=== PATIENT | male | born 1990 | race Caucasian/White ===

== ENCOUNTER 2017-10-07 11:25 | Inpatient (IN) | payer BC ==
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
[2017-10-07 13:56] LABS: PLATELET COUNT 357 10^3/uL (150-400)
[2017-10-07] MEDS ORDERED: IOPAMIDOL (ISOVUE-300) 100 ML BTL ONE (14:19)
[2017-10-07] MEDS ORDERED: PROMETHAZINE HCL 25 MG/ML INJ IVP PRN (17:13)
[2017-10-07] MEDS ORDERED: LORazepam 2 MG/ML INJ IVP PRN (17:13)
[2017-10-07] MEDS ORDERED: ONDANSETRON DISINTEGRATING 4 MG TAB PO PRN (17:13)
[2017-10-07] MEDS ORDERED: ONDANSETRON 4 MG/2 ML VIAL IVP PRN (17:13)
[2017-10-07] MEDS ORDERED: ACETAMINOPHEN 325 MG TAB PO PRN (17:13)
[2017-10-07] MEDS ORDERED: HYDROmorphONE/DILAUDID 1 MG/ML INJ IVP PRN (17:13)
[2017-10-07] MEDS ORDERED: oxyCODONE IR 5 MG TAB PO PRN (17:13)
[2017-10-07] MEDS ORDERED: BISACODYL 10 MG SUPP PR PRN (17:15)
[2017-10-07] MEDS ORDERED: MIDODRINE HCL 5 MG TAB PO PRN (17:15)
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
[2017-10-07] MEDS ORDERED: VANCOMYCIN 1.25 GM in NS 250 ML IV ONE (18:30)
[2017-10-07] MEDS: NS 1,000 ML IV SCH ×2 (18:36→23:49)
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
--- NOTE | 2017-10-07 20:00 | GPN ---
[f rep st] PROCEDURE NOTE DATE OF PROCEDURE: 10/07/2017 SURGEON: Brisa Juan MD. ANESTHESIA: 5 cc of 1% lidocaine. PREOPERATIVE DIAGNOSIS: Right paraspinal muscle abscess. POSTOPERATIVE DIAGNOSIS: Right paraspinal muscle abscess. PROCEDURE PERFORMED: Incision and drainage deep to the paraspinous muscles. FINDINGS: Loculated abscess. SPECIMENS: Fluid for culture. ESTIMATED BLOOD LOSS: 10 cc. INDICATIONS: As above. DESCRIPTION OF PROCEDURE: The patient was verbally consented for the procedure. He was on his side. Betadine was used to prep the skin. I injected the area with 5 cc of 1% lidocaine. I performed an incision. I had to deepen it significantly. I broke up the loculations with my fingers. I irrigat ed it with 50 cc of saline. I obtained a sample prior to irrigation. Hemostasis of a skin bleeder o btained with 3-0 Vicryl. Otherwise, hemostasis achieved with direct pressure. The wound was packed, ABD and tape applied. He tolerated the procedure well. His vital signs were stable throughout the procedure. /[id number]/MODL
[2017-10-07] MEDS ORDERED: NS IV SCH ×2 (20:30→21:00)
[2017-10-07] MEDS ORDERED: DAPTOMYCIN IV SCH ×2 (20:30→21:00)
[2017-10-07] MEDS: BACLOFEN 10 MG TAB PO SCH (21:36)
[2017-10-07] MEDS: DAPTOmycin 500 MG in NS 100 ML IV SCH (21:36)
[2017-10-07] MEDS: FLUDROCORTISONE ACETATE 0.1 MG TAB PO SCH (21:37)
[2017-10-07] MEDS: FAMOTIDINE 20 MG TAB PO SCH (21:37)
[2017-10-07] MEDS: GABAPENTIN 300 MG CAP PO SCH (21:37)
[2017-10-07] MEDS: PSYLLIUM METAMUCIL 1 PKT PO SCH (21:38)
[2017-10-08 05:41] LABS: PLATELET COUNT 272 10^3/uL (150-400)
[2017-10-08] MEDS ORDERED: DAPTOmycin 500 MG in NS 100 ML IV SCH (09:00)
[2017-10-08] MEDS ORDERED: TOLTERODINE TARTRATE 4 MG PO SCH (09:00)
[2017-10-08] MEDS: GABAPENTIN 300 MG CAP PO SCH ×2 (09:03→21:16)
[2017-10-08] MEDS: DOCUSATE SODIUM 100 MG CAP PO SCH (09:03)
[2017-10-08] MEDS: MIDODRINE HCL 5 MG TAB PO SCH (09:03)
[2017-10-08] MEDS: PSYLLIUM METAMUCIL 1 PKT PO SCH ×3 (09:03→21:17)
[2017-10-08] MEDS: BACLOFEN 10 MG TAB PO SCH ×3 (09:04→21:16)
[2017-10-08] MEDS: FLUDROCORTISONE ACETATE 0.1 MG TAB PO SCH ×2 (09:04→21:16)
[2017-10-08] MEDS: SENNOSIDES 1 TAB PO SCH ×2 (09:04→09:05)
[2017-10-08] MEDS: FAMOTIDINE 20 MG TAB PO SCH ×2 (09:04→21:17)
--- NOTE | 2017-10-08 10:10 | SOAPPROG ---
[facility] Progress Note Assessment/Plan: Assessment: 27 y/o quadriplegic M s/p I&D paraspinal muscle abscess S: Feeling better. He is originally from [place] and was here for concert. Reports that he is supposed to have total joint replacement surgery in the coming weeks. O: Alert Afebrile RRR No increased WOB Back: dressing and packing were changed. Wound appears healthy with good granulation tissue. It does undermine inferiorly. There is still some surrounding erythema and induration, but improving. Plan: Can go from surgery standpoint when medically stable. Will need ongoing wound care when he gets back to [place]. 10/08/17 10:05 Objective: Vital Signs Temp Pulse Resp BP Pulse Ox 36.8 C 58 L 15 130/82 H 95 10/08/17 08:00 10/08/17 08:00 10/08/17 08:00 10/08/17 08:00 10/08/17 08:00 Microbiology 10/07/17 17:13 Gram Stain - Final Back - Aspirate Laboratory Results 10/08/17 04:59 10/08/17 04:59 10/07/17 10/08/17 10/09/17 05:59 05:59 05:59 Intake Total 1999 Output Total 1775 Balance 225 ICD10 Worksheet Patient Problems: Problems Problem Status Onset Paraspinal abscess Acute
--- NOTE | 2017-10-08 10:37 | PDMN ---
Medical Necessity Medical necessity: Pt meets inpt criteria per MD order and MCG M-160, Sepsis and other febrile illness, A-3 days, Pt admitted w/fever and malaise from large paraspinal muscle abcess which required I&D on 10/07/17 and IV ABX's. Pt is high risk b/c of hx of quadriplegia requiring inpt monitoring and treatment.
--- NOTE | 2017-10-08 13:13 | HOSPPROG ---
Hospitalist Progress Note Assessment/Plan: Assessment: 27-year-old male presents with paraspinal muscle abscess in the setting quadriplegia Plan: 1. Paraspinal muscle abscess. Acute, new problem this provider, further workup indicated. Postop day [address] incision and drainage [address] Dr[address] Brisa Juan, loculations manually disrupted in OR, affected area is approximately L2 to sacral area on abdominal CT (personally interpreted) -wound cultures sent, blood cultures sent, currently awaiting speciation and sensitivity in order to guide antibiotic treatment -discussed with Dr. Adithya Mosley, he has raise the possibility of discharge on oral antibiotics as interval treatment until the patient can re-establish back in [place] and resume IV antibiotics, but this is pending speciation and sensitivity of the surgically obtained cultures -continue IV daptomycin in the interval, experienced either allergic reaction or red man syndrome with vancomycin 2. Quadriplegia. Secondary to cervical spine injury, the patient has movement in his bilateral upper extremities without fine motor movement in his hands, he has no sensation distal to the nipple line and no pain in his surgical area -continue baclofen and gabapentin for muscular spasm -continue a straight catheterizations per home routine 3. Suspected asymptomatic bacteriuria. Prior to arrival, the patient had urinalysis and urine culture obtained by his primary care provider, Dr. Brambila, [facility] in [place], secondary to increased urinary incontinence as well as fevers (which are most likely attributable to his developing abscess) -patient's primary care provider office has contacted him and notified him that there are organisms growing on urine culture, we will order outside records today from his primary care provider office to evaluate the urinalysis and urine culture which were obtained at that time -his urinalysis on presentation here while he was off of antibiotics was completely benign, and I suspect that his urine growth on recent urine culture is asymptomatic bacteriuria -will hold on broadening antibiotics at this time Diet. Regular Prophylaxis. High risk patient, Lovenox 40 Code. Full Disposition. Anticipated discharge uncertain this time, currently awaiting speciation and sensitivity of abscess cultures required to guide antibiotic treatment. After case management discussion with patient, the plan is for the patient to return to [place] for the duration of his treatment, following appropriate culture result and antibiotic guidance. Subjective: no pain in back, mild spasms in leg muscles overnight Objective: Vital Signs Temp Pulse Resp BP Pulse Ox 36.7 C 81 16 86/46 L 96 10/08/17 12:00 10/08/17 12:00 10/08/17 12:00 10/08/17 12:00 10/08/17 12:00 Microbiology 10/07/17 17:13 Gram Stain - Final Back - Aspirate Laboratory Results 10/08/17 04:59 10/08/17 04:59 10/07/17 10/08/17 10/09/17 05:59 05:59 05:59 Intake Total 1999 Output Total 1775 Balance 225 - Physical Exam Constitutional: no apparent distress, appears nourished, not in pain, No uncomfortable Cardiovascular: regular rate and rhythym, no murmur, rub, or gallop, No edema Respiratory: no respiratory distress, no rales or rhonchi, clear to auscultation Gastrointestinal: normoactive bowel sounds, soft, non-tender abdomen, no palpable masses, No distension Skin: other (bandages on back in place) Neurologic: AAOx3, weakness (0/5 motor strength bilat LE), other (bilat hands w/ o fine motor), No sensation intact bilaterally (absent distal to nipple line), No facial droop Psychiatric: interacting appropriately, not anxious, not encephalopathic, thought process linear ICD10 Worksheet Patient Problems: Problems Problem Status Onset Paraspinal abscess Acute
--- NOTE | 2017-10-08 13:17 | ASMTCMCOM ---
CM Note CM Note Notes: Patient admitted with a paraspinal abscess that required a bedside I&D in the ED. He's a C6 quadriplegic for 11 months and is followed by wound care for sacral and LE wounds. Patient is from [place] and was in [place] visiting a friend. He has a flight scheduled for tomorrow but will change that depending on what we recommend. Per hospitalist, he will likely require some IV antibiotics upon discharge. When I spoke with patient about completing those here, he said that it wasn't an option to stay with his friend and do that here and that he'd rather do it in [place]. I've relayed this information to hospitalist, and we'll try to work with patient's needs. Ideally, we could discharge him on the day of his flight and [place] get [place]. Case Management will follow. Date Signed: 10/08/2017 01:17 PM Electronically Signed By:Mae Davies RN
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
[2017-10-08] MEDS: TOLTERODINE TARTRATE 2 MG EXT REL CAP PO SCH (17:09)
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
[2017-10-08] MEDS: DAPTOmycin 500 MG in NS 100 ML IV SCH (21:08)
[2017-10-09 05:12] LABS: CREATINE KINASE 111 IU/L (0-224)
[2017-10-09 08:00] VITALS: BP 115/66
--- NOTE | 2017-10-09 08:37 | HOSPPROG ---
Hospitalist Progress Note Assessment/Plan: Patient is a 27-year-old male with a past medical history of C6 quadriplegia. He presented the emergency room with worsening back pain. It was noted that he had a payroll spinal abscess. Today is my 1st encounter with the patient. Chart reviewed. * paraspinal muscle abscess -status post I and D -appreciate Infectious Disease seeing the patient -currently on IV daptomycin (CPK stable) -patient had a poor reaction to vancomycin in the past -reviewed his care w Dr Mosley and he will need a total of ten days of antibiotics. He will be dc on doxycycline and Augmentin. -Dr Juan is reaching out to his doctor to get close f/u care/ will need further surgery -CJ to help arrange home care for himself since he lives in [place] /needs daily dressing changes * Quadriplegia. Secondary to cervical spine injury. -continue baclofen and gabapentin for muscular spasm -continue a straight catheterizations per home routine *asymptomatic bacteriuria -further f/u with his PCP. *Plan: possible dc today, patient arranging to see if he can get a flight out today back to [place], next one is 17:30 this evening. Will need copies of his records. Subjective: CJ has no complaints, his main concern is close f/u. Objective: Vital Signs Temp Pulse Resp BP Pulse Ox 36.7 C 68 15 115/66 97 10/09/17 08:00 10/09/17 08:00 10/09/17 08:00 10/09/17 08:00 10/09/17 08:00 Microbiology 10/07/17 17:13 Gram Stain - Final Back - Aspirate Laboratory Results 10/08/17 04:59 10/08/17 04:59 10/08/17 10/09/17 10/10/17 05:59 05:59 05:59 Intake Total 1999 4132 Output Total 6997 1050 Balance 225 3083 - Physical Exam Constitutional: no apparent distress, appears nourished, not in pain Eyes: PERRL Ears, Nose, Mouth, Throat: hearing normal Cardiovascular: regular rate and rhythym Respiratory: no respiratory distress Gastrointestinal: normoactive bowel sounds Skin: warm Musculoskeletal: other (paralysis in low extremities) Neurologic: AAOx3 Psychiatric: interacting appropriately ICD10 Worksheet Patient Problems: Problems Problem Status Onset Paraspinal abscess Acute
[2017-10-09] MEDS ORDERED: ENOXAPARIN 40 MG/0.4 ML SYR SC SCH (09:00)
[2017-10-09] MEDS: PSYLLIUM METAMUCIL 1 PKT PO SCH (09:12)
[2017-10-09] MEDS: GABAPENTIN 300 MG CAP PO SCH (09:13)
[2017-10-09] MEDS: TOLTERODINE TARTRATE 2 MG EXT REL CAP PO SCH (09:13)
[2017-10-09] MEDS: BACLOFEN 10 MG TAB PO SCH (09:13)
[2017-10-09] MEDS: DOCUSATE SODIUM 100 MG CAP PO SCH (09:13)
[2017-10-09] MEDS: FLUDROCORTISONE ACETATE 0.1 MG TAB PO SCH (09:13)
[2017-10-09] MEDS: MIDODRINE HCL 5 MG TAB PO SCH (09:13)
[2017-10-09] MEDS: SENNOSIDES 1 TAB PO SCH (09:13)
--- NOTE | 2017-10-09 09:13 | SOAPPROG ---
SOAP Progress Note Assessment/Plan: Assessment/Plan: 27 Y paraplegic M s/p I&D of right sided lumbar abscess. Repacked wound wound this am. 6 cm tunneling caudad. Induration decreased by 1/ 3 to 1/2 since exam yesterday morning. No erythema. No malodor. Moderate drainage but d/w'ed Dr. Juan this am and this could be from alginate dressing placed by wound care yesterday. Wound cultures NGTD. D/c per ID clearance and medicine's judgement. Will have wound care needs and f/u in [place]. 10/09/17 09:15 Objective: Vital Signs Temp Pulse Resp BP Pulse Ox 36.7 C 68 15 115/66 97 10/09/17 08:00 10/09/17 08:00 10/09/17 08:00 10/09/17 08:00 10/09/17 08:00 Microbiology 10/07/17 17:13 Gram Stain - Final Back - Aspirate Laboratory Results 10/08/17 04:59 10/08/17 04:59 10/08/17 10/09/17 10/10/17 05:59 05:59 05:59 Intake Total 1999 8704 Output Total 8416 1050 Balance 225 3083 ICD10 Worksheet Patient Problems: Problems Problem Status Onset Paraspinal abscess Acute
[2017-10-09] MEDS: FAMOTIDINE 20 MG TAB PO SCH (09:14)
--- NOTE | 2017-10-09 12:58 | PCMIDPN ---
Assessment/Plan: Assessment/Plan: * Right paraspinous abscess status post incision and drainage: Cultures remain negative with Gram stain showing 2+ GPC. Query if this may be more indolent pathogen or anaerobic ruben. Typically Staphylococcus aureus or beta-hemolytic streptococci would have grown at this point in time. Reviewed operative findings with Dr. Juan who notes that abscess was an capsulated with multiple loculations and likely will require excisional drainage as definitive therapy. May be easier to pursue this in [place] where patient lives as this likely will require more prolonged recovery and wound care. Will transition daptomycin to doxycycline (MRSA coverage) and Augmentin (strep, mixed ruben, anaerobic coverage) to complete 10 days of therapy. Side effects of antibiotic therapy were discussed with patient at time of visit today. * Positive urine culture: Urinalysis shows no pyuria. Multiple colony types present on culture. Suspect this is due to asymptomatic bacteriuria rather than true UTI. Do not recommend targeted therapy. 10/09/17 12:55 10/09/17 12:58 Subjective: Patient feels clinically improved. No issues with daptomycin. Objective: Vital Signs Temp Pulse Resp BP Pulse Ox 36.7 C 68 15 115/66 97 10/09/17 08:00 10/09/17 08:00 10/09/17 08:00 10/09/17 08:00 10/09/17 08:00 Microbiology 10/07/17 17:13 Gram Stain - Final Back - Aspirate Laboratory Results 10/08/17 04:59 10/08/17 04:59 10/08/17 10/09/17 10/10/17 05:59 05:59 05:59 Intake Total 1999 477 Output Total 1775 1050 Balance 225 3083 Daptomycin # 2 Abscess cultures no growth to date Laboratory Tests 10/09/17 04:43 Creatine Kinase 111 - Physical Exam General Appearance: alert, no apparent distress EENT: No scleral icterus, No thrush Abdomen: non-tender, No distended Back: other (Incision and drainage site along right flank without erythema or significant induration; packing in place) - Time Spent With Patient Time Spent with Patient: greater than 25 minutes Time Spent with Patient: Greater than 25 minutes spent on this patients care, greater than 50% of time spent counseling, educating, and coordinating care regarding the above mentioned plan. ICD10 Worksheet Patient Problems: Problems Problem Status Onset Paraspinal abscess Acute
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
--- NOTE | 2017-10-09 13:55 | PDIAF ---
- Diagnosis Diagnosis: paraspinal abscess, spinal cord injury Code Status: Full Code - Medication Management Discharge Medications: Medications to Continue on Transfer Baclofen [Baclofen 10 mg (*)] 10 mg PO TID 10/07/17 [Last Taken 10/07/17 08:00] Bisacodyl [Magic Bullet 10 mg] 10 mg WI DAILY PRN 10/07/17 [Last Taken 10/06/17] Calcium Polycarbophil [FIBERCON] 1,250 mg PO BID 10/07/17 [Last Taken 10/07/17] Docusate Sodium [Colace 100 MG (*)] 100 mg PO DAILY 10/07/17 [Last Taken ] FLUDROCORTISONE ACETATE 0.1 mg PO BID 10/07/17 [Last Taken 10/07/17] Famotidine [Pepcid 20 MG (*)] 20 mg PO BID 10/07/17 [Last Taken 10/07/17] Gabapentin [Neurontin 300 MG (*)] 600 mg PO BID 10/07/17 [Last Taken 10/07/17] Midodrine HCl [Proamatine/Midodrin] 5 - 10 mg PO TID PRN 10/07/17 [Last Taken Unknown] Midodrine HCl [Proamatine/Midodrin] 10 mg PO DAILY 10/07/17 [Last Taken 10/07/17 ] Sennosides [Senokot] 1 each PO DAILY 10/07/17 [Last Taken 10/07/17] Tolterodine Tartrate [Tolterodine Tartrate ER] 4 mg PO DAILY 10/07/17 [Last Taken 10/07/17] Amoxicillin/Clavulanate Pot [Augmentin 875 MG TAB (*)] 875 mg PO BID #17 tab 01/17 [Last Taken Unknown] Doxycycline Hyclate [Vibramycin 100 MG (*)] 100 mg PO BID #17 cap 10/09/17 [ Last Taken Unknown] Discharge Medications: Refer to the Discharge Home Medication list for PRN reason. PICC Care - Routine: N/A - Orders Services needed: Home Care, Registered Nurse, Physical Therapy, Occupational Therapy Home Care Face to Face: I certify that this patient was under my care and that I had the required [id number] encounter meeting the encounter requirements on the discharge day. My findings support the fact that the patient is homebound as defined in Home Care Face to Face Continued: CMS Chapter 7 Medicare Benefits Manual 30.1.1 , The condition of the patient is such that there exists a normal inability to leave home and consequently, leaving home would require a considerable and taxing effort. Diet Recommendation: no restrictions on diet Diet Texture: Regular Texture Diet Additional Instructions: start antibiotics this evening f/u with your surgeon as soon as you return home (you need further surgery) take copies of your imaging with you on the disc, take a copy of consults for your doctor you need daily wound care your scripts were sent here to [facility] and will be brought to you - Follow Up Care Current Providers and Referrals: Brisa Juan MD [Medical Doctor] - Adithya Mosley MD [Medical Doctor] - NONE *PRIMARY CARE P,. [Primary Care Provider] - As per Instructions
--- NOTE | 2017-10-09 16:54 | ASMTCMCOM ---
CM Note CM Note Notes: Pt medically stable for d/c returning to [facility]. Pt will follow up with care team in [place] and has MD appointment tomorrow. By the time of close of business [facility] RN for wound care was not secured, several agencies were unable to staff and referrals still pending for [facility]. Updated pt there was no [facility] agency secured and pt reports he will have MD assist tomorrow. Pt has a friend take him from [facility] to airport. Date Signed: 10/09/2017 04:53 PM Electronically Signed By:ROBERTO Steve
--- NOTE | 2017-10-10 11:12 | ASMTCMCOM ---
CM Note CM Note Notes: Janay with [facility] [phone] can accept pt with more information, she will call pt mother for the information. Date Signed: 10/10/2017 11:11 AM Electronically Signed By:ROBERTO Steve
== END 2017-10-09 15:13 | disposition home or self-care (01) | DRG 500 ==
LOC: F3N 17:25
PROVIDERS: ADMIT Internal Medicine; ATTEND Internal Medicine
PROC: 0J970ZZ Drainage of Back Subcutaneous Tissue and Fascia, Open Approach (ICD-10-PCS; principal; 2017-10-07)
DX: M60.08 Infective myositis, other site (principal); G82.53 Quadriplegia, C5-C7 complete; W16.42XS Fall into unspecified water causing other injury, sequela; M61.2 Paralytic calcification and ossification of muscle; G90.4 Autonomic dysreflexia; L27.0 Generalized skin eruption due to drugs and medicaments taken internally; T36.8X5A Adverse effect of other systemic antibiotics, initial encounter; R82.71 Bacteriuria; S31.819A Unspecified open wound of right buttock, initial encounter; X50.9XXA Other and unspecified overexertion or strenuous movements or postures, initial encounter; Y93.F2 Activity, caregiving, lifting; Y99.8 Other external cause status; L89.513 Pressure ulcer of right ankle, stage 3; L89.523 Pressure ulcer of left ankle, stage 3
CPT/HCPCS: J0878; J1200; J1650; J2405; J3370; Q9967